=== PATIENT | female | born 1940 | race Caucasian/White ===

== ENCOUNTER 2016-11-11 10:59 | Emergency (ER) | payer MEDICARE, OTHER ==
[~2016-11-11 10:59] MED LIST: ALPRAZOLAM0.25 M2 PO; ATENOLOL25 MG; ATORVASTATIN CA40 MG PO; ATORVASTATIN CA80 M1 PO; BENADRILINA25 MG PO; CELEBREX200 M1 PO; DIPHENOXYLATE-1 EAC1 PO; GEMFIBROZIL600 MG; GLIPIZIDE ER5 MG PO; GLUCOPHAGE500 MG PO; HYOSCYAMINE0.375 M3 PO; JANUVIA50 M1 PO; LIPITOR40 MG; LOTENSIN40 M1 PO; MELATONIN5 M7 PO; NORCO 5/325 TAB1 TAB PO; NORVASC10 M2 PO; NORVASC5 M1 PO; SERTRALINE HCL100 M1 PO; SERTRALINE HCL100 M5 PO; SERTRALINE HCL100 MG PO; SYNTHROID112 MCG; SYNTHROID112 MCG PO; SYNTHROID150 MC1 PO; TOLTERODINE TART4 M1 PO; TRIAMTERENE-HC1 EAC1 PO; TRICOR145 M1 PO; TYLENOL PM EX-1 EAC4 PO; VENLAFAXINE HC150 M1 PO; VYTORIN 10/80 T1 TAB; VYTORIN 10/80 T1 TAB PO; ZOLOFT100 MG
[2016-11-11] MEDS ORDERED: KEFLEX500 M4 PO (11:38)
[2016-11-11] MEDS ORDERED: AMIODARONE HCL200 M1 PO (11:39)
[2016-11-11] MEDS ORDERED: ELIQUIS5 M1 PO (11:39)
[2016-11-11 11:41] LABS: BASO % 0.2 % (0-2); EOS % 0.5 % (0-7); EOSINOPHIL ABSOLUTE COUNT 0.1 tho/cmm (0.0-0.7); HCT-HEMATOCRIT 35.7 % (34.0-49.0); HGB-HEMOGLOBIN 11.2 gm/dl (12.0-15.5); IMMATURE GRANULOCYTES ABSOLUTE 0.04 tho/cmm (0-0.03); IMMATURE GRANULOCYTES PERCENT 0.4 % (0-0.3); LYMPH % 8.6 % (20-45); LYMPH ABSOLUTE COUNT 0.9 tho/cmm (0.8-4.5); MCH (MEAN CORPUSCULAR HGB) 24.8 pg (28.0-32.0); MCHC MEAN CORPUSCULAR HGB CONC 31.4 % (32.0-36.0); MCV (MEAN CELL VOLUME) 79.2 fl (82.0-96.0); MEAN PLATELET VOLUME 8.8 cmc (9.4-12.4); MONO % 3.4 % (0-12); MONOCYTE ABSOLUTE COUNT 0.3 tho/cmm (0.0-1.2); NEUTROPHIL ABSOLUTE COUNT 8.7 tho/cmm (1.6-8.0); NEUTROPHIL-AUTOMATED 8.7 tho/cmm (1.6-8.0); NEUTROPHILS % 86.9 % (40-80); PLATELET COUNT 446 tho/cmm (150-450); RED BLOOD COUNT 4.51 mil/cmm (4.00-5.20); RED CELL DISTRIBUTION WIDTH 17.6 % (12.4-16.4)
[2016-11-11 11:58] LABS: ALB/GLOB RATIO 0.6 (0.8-2.0); ALBUMIN 3.3 g/dl (3.5-5.0); ALKALINE PHOSPHATASE 61 U/L (33-138); ALT/SGPT 47 U/L (12-78); BILIRUBIN,TOTAL 0.5 mg/dl (0-1.5); BLOOD UREA NITROGEN 20 mg/dl (6-24); C-REACTIVE PROTEIN 0.6 mg/dl (0-0.9); CALCIUM 7.2 mg/dl (8.5-10.5); CARBON DIOXIDE-VENOUS 25 mmol/L (22-32); CHLORIDE 101 mmol/l (96-110); CREATININE 1.09 mg/dl (0.50-1.10); GLUCOSE 156 mg/dL (70-110); LIPASE 124 U/L (73-393); SODIUM 140 mmol/L (135-145); eGFR VALUE FOR BLACK 58 mL/Min
[2016-11-11 12:01] LABS: ANION GAP 18 mmol/L (0-20); AST/SGOT 36 U/L (10-40); POTASSIUM 3.6 mmol/L (3.7-5.1)
[2016-11-11 13:26] LABS: URINE BILIRUBIN SMALL (NEG); URINE BLOOD MODERATE (NEG); URINE GLUCOSE (UA) NEGATIVE (NEG); URINE KETONE NEGATIVE (NEG); URINE LEUKOCYTE ESTERASE POSITIVE (NEG); URINE NITRITE NEGATIVE (NEG); URINE PH 6.5 (5.0-8.0); URINE PROTEIN MODERATE (NEG); URINE SPECIFIC GRAVITY 1.015 (1.003-1.030)
[2016-11-11 13:27] LABS: URINE APPEARANCE CLEAR; URINE COLOR YELLOW
[2016-11-11 13:39] LABS: URINE BACTERIA 1+; URINE MUCUS 3+
[2016-11-11] MEDS ORDERED: MACROBID 100 M100 M1 PO (13:59)
== END 2016-11-11 14:08 ==
LOC: EDMED 10:59
PROVIDERS: Nurse Practitioner Family
DX: N39.0 Urinary tract infection, site not specified (principal); E11.9 Type 2 diabetes mellitus without complications; I48.91 Unspecified atrial fibrillation; Z90.49 Acquired absence of other specified parts of digestive tract; Z90.710 Acquired absence of both cervix and uterus
CPT/HCPCS: J2405; J7030